=== PATIENT | female | born 1985 | race Caucasian/White ===

== ENCOUNTER 2021-07-04 08:33 | Outpatient (REF) | payer BC, SELFPAY ==
[2021-07-05 06:03] LABS: CT PCR NOT DETECTED (Not Detect.); NG PCR NOT DETECTED (Not Detect.)
[2021-07-05 08:58] LABS: BV Int Neg Control Negative (Negative); BV Int Pos Control Positive (Positive)
== END 2021-07-04 08:34 | disposition home or self-care (01) ==
LOC: HO.LAB 08:33
PROVIDERS: PCP Internal Medicine; Visit Provider Advanced Practice Midwife
DX: Z11.3 Encounter for screening for infections with a predominantly sexual mode of transmission (principal); N94.6 Dysmenorrhea, unspecified; N89.8 Other specified noninflammatory disorders of vagina; N92.4 Excessive bleeding in the premenopausal period
CPT/HCPCS: 87480; 87491; 87510; 87591; 87660

== ENCOUNTER 2021-10-08 18:46 | Emergency (ER) | payer BC, SELFPAY ==
[2021-10-08 19:44] VITALS: BP 120/70; PULSE 87; RESP 18; TEMP 36.8; O2SAT 97
--- NOTE | 2021-10-08 23:36 | ED_ITS ---
HPI - Back Pain/Injury General Chief Complaint: Back Pain/Injury Stated Complaint: Back pain Time Seen by Provider: 10/08/21 23:34 Source: patient Mode of arrival: ambulatory Limitations: no limitations History of Present Illness HPI Narrative: notes she feels due to the pain she has trouble walking and even cut her right heel at home MD elicited complaint: back pain and back injury Pertinent past history: other (sciatica with ) Onset (ago): day(s) (6) Timing: progressively worsening Severity: severe Similar Symptoms Previously: No Quality: sharp Location: lumbar spine Radiation: buttocks and left leg below the knee Exacerbating factors: movement and walking Relieving factors: none Context: unknown Associated symptoms: difficulty walking and urinary incontinence (reports sitting and feeling urine leak x 2 this week) Treatments prior to arrival: other (has tried NSAIDs last dose 6 hours ago no relief) Work related injury: No Related Data Home Medications Medication Instructions Recorded Confirmed clonazepam 1 mg tablet 1 mg PO BID PRN 07/04/21 07/04/21 escitalopram oxalate 20 mg tablet 20 mg PO DAILY 07/04/21 07/04/21 Previous Rx's Medication Instructions Recorded diazepam 5 mg tablet (Valium) 5 mg PO TID PRN #12 tab 10/09/21 ibuprofen 600 mg tablet 600 mg PO Q6H PRN #30 tab 10/09/21 lidocaine 4 % topical patch 1 patch TOPICAL DAILY PRN #10 ea 10/09/21 prednisone 20 mg tablet 40 mg PO DAILY 4 Days #8 tab 10/09/21 Allergies Allergy/AdvReac Type Severity Reaction Status Date / Time No Known Allergies Allergy Verified 10/08/21 19:44 [No Known Allergies*] Review of Systems Review of Systems: Constitutional : No Weight loss, No Fever, No Chills, ENT/Mouth : No Hearing loss, No Ear Pain, No Nasal Congestion, No Sinus Pain, No Hoarseness, No sore throat, No Rhinorrhea, No Swallowing Difficulty Cardiovascular : No Chest Pain, No SOB Respiratory : No Cough, No Dyspnea Gastrointestinal : No Nausea, No Vomiting, No Diarrhea, No abdominal Pain, No Hematochezia, No Melena Genitourinary : No Dysuria, No Urinary Frequency, No Hematuria, No Urinary Incontinence, Musculoskeletal : positive back pain Skin : No Skin Lesions, No rash Neuro : No Weakness, No Numbness, No Paresthesias, no loss of bowel function, pos mild bladder incontinence, no saddle anesthesia All other systems reviewed and are negative [facility] Past Medical History Attestation statement: The following information was validated with the patient. Medical History History of anxiety Surgical History Hx of section Social History Social History Alcohol intake: current Alcohol intake frequency: a few times a week Patient Tobacco Use Status: Former Tobacco user e-Cigarette/Vaping Use: Currently Using Advance Directives: No Advance Directives Information Provided: Yes Patient : No Sexual orientation: Straight/Heterosexual Gender identity: Female Physical Exam Vital Signs: Vital Signs: Last Vital Signs Temp 98.7 F 10/09/21 00:10 Pulse 67 10/09/21 00:10 Resp 12 10/09/21 00:10 BP 104/54 L 10/09/21 00:10 Pulse Ox 98 10/09/21 00:10 Body Mass Index 0.3 Appearance: Alert. Oriented X3. No acute distress. Eyes: Pupils equal, round and reactive to light. ENT: Pharynx normal. Neck: Normal inspection. Neck supple. CVS: Normal heart rate and rhythm. Pulses normal. Respiratory: No respiratory distress. Breath sounds normal. Abdomen: Soft and nontender. Rectal: normal tone Back: ttp along lumbar spine into L buttock reproduces pain Skin: Skin warm and dry. Normal skin color. Normal skin turgor. Extremities: No lower extremity edema. Neuro: Oriented X 3. No motor deficit. No sensory deficit. SILT inner thigh, L5 5/5 2+ DTR in patella and achilles Course Course Course Narrative: PVR 57mL not retaining urine feels much better stable for DC MDM - Back Pain/Injury MDM Narrative Medical decision making narrative: 36 yo female who has had sciatica in comes in with c/o low back pain radiating down left leg - SILT inner thigh, 2+ reflexes, L5 5/5 bilaterally, normal rectal tone, no AC therapy and no IVDA - will obtain PVR as well. At this time suspect sciatica will provide IV toradol/morphine and steroids for pain. No signs of CE at this time pending PVR Discharge Plan Discharge Clinical Impression: Sciatica Qualifiers: Laterality: left Qualified Code(s): M54.32 - Sciatica, left side Patient Disposition: Home, Self-Care Instructions: Sciatica (ED) Additional Instructions: return to ED for any worsening symptoms or concerns please see your primary care for possible MRI and physical therapy Prescriptions: New lidocaine 4 % adhesive patch,medicated 1 patch topical DAILY PRN (Reason: pain) Qty: 10 RF: 0 prednisone 20 mg tablet 40 mg PO DAILY 4 Days Qty: 8 RF: 0 ibuprofen 600 mg tablet 600 mg PO Q6H PRN (Reason: pain) Qty: 30 RF: 0 diazepam [Valium] 5 mg tablet 5 mg PO TID PRN (Reason: muscle spasm) Qty: 12 RF: 0 No Action escitalopram oxalate 20 mg tablet 20 mg PO DAILY RF: 0 clonazepam 1 mg tablet 1 mg PO BID PRNRF: 0 Stand Alone Forms: Work/School Release
[2021-10-09 00:10] VITALS: BP 104/54; PULSE 67; RESP 12; TEMP 37.1; O2SAT 98
[2021-10-09] MEDS: ondansetron HCL 4 MG/2 ML VIAL IVPUSH (01:02)
[2021-10-09] MEDS: Morphine Sulfate 4 MG/ML CARTRIDGE IVPUSH (01:02)
[2021-10-09] MEDS: Ketorolac Tromethamine 15 MG/ML VIAL 30 MG IVPUSH (01:02)
[2021-10-09] MEDS: methylPREDNISolone Sod Succ 125 MG/2 ML VIAL 60 MG IVPUSH (01:03)
[2021-10-09] MEDS: Famotidine/PF 20 MG/2 ML VIAL IVPUSH (01:06)
[2021-10-09 01:21] LABS: Appearance Urine CLEAR; Color Urine STRAW; Glucose Urine UA NEG (NEG); Leukocyte Esterase Urine NEG (NEG); Nitrite Urine NEG (NEG); Specific Gravity - Urine <= 1.005 (1.005-1.025); Urine Blood NEG (NEG); Urine Ketones NEG (NEG); Urine Protein NEG (NEG-TRACE)
[2021-10-09 01:24] LABS: UPreg QC Valid YES; Urine Pregnancy NEGATIVE (NEGATIVE)
[2021-10-09 01:25] LABS: UACC Culture Trigger NO
== END 2021-10-09 03:12 | disposition home or self-care (01) ==
PROVIDERS: Emergency Provider Emergency Medicine
DX: M54.32 Sciatica, left side (principal); R26.2 Difficulty in walking, not elsewhere classified; Z87.891 Personal history of nicotine dependence; Z79.899 Other long term (current) drug therapy
CPT/HCPCS: 51798; 81003; 81025; 96374; 96375; 99284; J1885; J2270; J2405; J2930

== ENCOUNTER 2023-02-18 09:29 | Outpatient (REF) | payer BC, SELFPAY ==
[2023-02-18 14:57] LABS: CT PCR NOT DETECTED (Not Detect.); NG PCR NOT DETECTED (Not Detect.)
[2023-02-19 13:00] LABS: BV Int Neg Control Negative (Negative); BV Int Pos Control Positive (Positive)
[2023-02-19 19:43] LABS: HPV mRNA E6/E7 rflx Not Detected (Not Detected)
== END 2023-02-18 09:30 | disposition home or self-care (01) ==
LOC: HO.LNP 09:29
PROVIDERS: Visit Provider Advanced Practice Midwife
DX: Z01.419 Encounter for gynecological examination (general) (routine) without abnormal findings (principal); Z11.51 Encounter for screening for human papillomavirus (HPV); Z20.2 Contact with and (suspected) exposure to infections with a predominantly sexual mode of transmission; N92.4 Excessive bleeding in the premenopausal period; Z87.42 Personal history of other diseases of the female genital tract; Z98.890 Other specified postprocedural states
CPT/HCPCS: 0353U; 87480; 87510; 87624; 87660; 88142

== ENCOUNTER 2023-02-27 12:48 | Outpatient (REF) | payer BC, SELFPAY ==
--- NOTE | ~2023-02-27 | US_ITS ---
EXAMINATION: US PELVIS CLINICAL INFORMATION: Excessive menstruation, LMP 01/27/2023. COMPARISON: None available. TECHNIQUE: Ultrasound of the pelvis is performed using both transabdominal and transvaginal transducers along with Doppler. Transvaginal imaging is performed due to inadequate visualization transabdominally. FINDINGS: The uterus is anteverted measuring 8.4 x 4.6 x 6 cm. No uterine lesion. The endometrium measures 1.6 cm in thickness without a discrete focal abnormality or associated vascularity. Nabothian cysts are noted in the cervix. The right ovary is slightly asymmetrically increased in size compared to the left but normal in morphology with preserved flow at the moment of this examination. The right ovary measures 3. 2 x 2 by 3 cm, 11 mL and the left ovary measures 2.9 x 1.7 x 2 cm, 5 mL. No free fluid. US/US pelvic and transvaginal IMPRESSION: 1. The endometrium is within the upper limits of normal for a premenopausal patient in the secretory phase of the menstrual cycle. Recommend correlation with certainty of the patient's menstrual history and a follow-up pelvic ultrasound in a few weeks to reassess. 2. The right ovary is asymmetrically enlarged when compared to the left, nonspecific. A discrete ovarian lesions or morphologic abnormality are not identified. This could be reassessed with the above recommended ultrasound as well.
== END 2023-02-27 12:49 | disposition home or self-care (01) ==
LOC: HO.HMGCX 12:48
PROVIDERS: PCP Internal Medicine; Visit Provider Advanced Practice Midwife
DX: N92.4 Excessive bleeding in the premenopausal period (principal); Z87.42 Personal history of other diseases of the female genital tract
CPT/HCPCS: 76830; 76856

== ENCOUNTER → 2023-03-06 09:42 | Outpatient (BNVA) | payer BC, SELFPAY | PROVIDERS: PCP Internal Medicine; Visit Provider Advanced Practice Midwife | DX: Z13.89 Encounter for screening for other disorder (principal) ==

== ENCOUNTER 2023-03-14 16:04 | Outpatient (REF) | payer BC, SELFPAY ==
[2023-03-14 16:28] LABS: Hematocrit 42.5 % (37.0-47.0); Hemoglobin 14.5 g/dl (12.0-16.0); Mean Corpuscular HGB Conc 34.1 g/dl (31.0-35.0); Mean Corpuscular Hemoglobin 30.5 pg (27.0-33.0); Mean Corpuscular Volume 89.5 fL (80.0-98.0); Mean Platelet Volume 10.3 fL (9.4-12.3); Platelet Count 252 X10*3/uL (160-400); Red Blood Count 4.75 X10*6/uL (4.20-5.50); Red Cell Distribution Width 12.3 % (11.0-16.0); White Blood Count 8.8 X10*3/uL (4.8-10.8)
[2023-03-14 17:17] LABS: Thyroid Stimulating Hormone 1.04 uIU/mL (0.32-4.0)
== END 2023-03-14 16:05 | disposition home or self-care (01) ==
LOC: HO.LAB 16:04
PROVIDERS: Visit Provider Advanced Practice Midwife
DX: N92.4 Excessive bleeding in the premenopausal period (principal); Z87.42 Personal history of other diseases of the female genital tract
CPT/HCPCS: 36415; 84443; 85027

== ENCOUNTER 2023-03-17 14:15 | Outpatient (REF) | payer BC, SELFPAY | END 2023-03-17 14:16 | disposition home or self-care (01) | LOC: HO.LNP 14:15 | PROVIDERS: PCP Internal Medicine; Visit Provider Obstetrics & Gynecology | DX: Z87.42 Personal history of other diseases of the female genital tract (principal) | CPT/HCPCS: 58100; 81025; 88305 ==

== ENCOUNTER 2023-03-19 12:38 | Outpatient (REF) | payer BC, SELFPAY ==
[2023-03-19 13:10] LABS: Hematocrit 39.9 % (37.0-47.0); Hemoglobin 13.5 g/dl (12.0-16.0); Mean Corpuscular HGB Conc 33.8 g/dl (31.0-35.0); Mean Corpuscular Hemoglobin 30.2 pg (27.0-33.0); Mean Corpuscular Volume 89.3 fL (80.0-98.0); Mean Platelet Volume 10.1 fL (9.4-12.3); Platelet Count 187 X10*3/uL (160-400); Red Blood Count 4.47 X10*6/uL (4.20-5.50); Red Cell Distribution Width 12.2 % (11.0-16.0); White Blood Count 12.1 X10*3/uL (4.8-10.8)
[2023-03-19 13:55] LABS: Influenza A PCR NEGATIVE (Negative); Influenza B PCR NEGATIVE (Negative); Resp Syncy Virus RNA Qual PCR NEGATIVE (Negative); SARS COV2 PCR INHOUSE NEGATIVE (Negative)
[2023-03-19 14:49] LABS: IDNOW Serial# 08D9AD1C; Strep A Nucleic Acid Positive (Negative)
[2023-03-19 18:05] LABS: CT PCR NOT DETECTED (Not Detect.); NG PCR NOT DETECTED (Not Detect.)
== END 2023-03-19 12:39 | disposition home or self-care (01) ==
LOC: HO.LAB 12:38
PROVIDERS: PCP Internal Medicine; Visit Provider Obstetrics & Gynecology
DX: R50.9 Fever, unspecified (principal); J06.9 Acute upper respiratory infection, unspecified; J02.9 Acute pharyngitis, unspecified; Z20.2 Contact with and (suspected) exposure to infections with a predominantly sexual mode of transmission; Z87.42 Personal history of other diseases of the female genital tract
CPT/HCPCS: 0241U; 0353U; 81003; 81025; 85027; 87070; 87086; 87147; 87651

== ENCOUNTER 2023-03-19 13:35 | Outpatient (REF) | payer BC, SELFPAY | END 2023-03-19 13:36 | disposition home or self-care (01) | LOC: HO.LNP 13:35 | PROVIDERS: Visit Provider Obstetrics & Gynecology | DX: Z13.89 Encounter for screening for other disorder (principal) ==

== ENCOUNTER → 2023-04-21 11:24 | Outpatient (BNVA) | payer BC, SELFPAY | PROVIDERS: PCP Internal Medicine; Visit Provider Obstetrics & Gynecology ==

== ENCOUNTER 2025-06-23 13:04 | Outpatient (REF) | payer BC, SELFPAY ==
[2025-06-23 14:47] LABS: Hematocrit 38.3 % (37.0-47.0); Hemoglobin 12.9 g/dl (12.0-16.0); Mean Corpuscular HGB Conc 33.7 g/dl (31.0-35.0); Mean Corpuscular Hemoglobin 30.9 pg (27.0-33.0); Mean Corpuscular Volume 91.8 fL (80.0-98.0); NRBC Abs Auto 0.000 X10*3/uL (0.0-0.012); NRBC Pct Auto 0.0 /100WBC (0.0-0.2); Platelet Count 290 X10*3/uL (160-400); Red Blood Count 4.17 X10*6/uL (4.20-5.50); White Blood Count 8.2 X10*3/uL (4.8-10.8)
[2025-06-23 18:40] LABS: CT PCR NOT DETECTED (Not Detect.); NG PCR NOT DETECTED (Not Detect.)
== END 2025-06-23 13:05 | disposition home or self-care (01) ==
LOC: HO.LAB 13:04
PROVIDERS: PCP Internal Medicine; Visit Provider Obstetrics & Gynecology
DX: N93.9 Abnormal uterine and vaginal bleeding, unspecified (principal); Z32.02 Encounter for pregnancy test, result negative
CPT/HCPCS: 36415; 81025; 84443; 84702; 85027; 87491; 87591

== ENCOUNTER 2025-06-23 13:04 | Outpatient (AMB) | payer BC, SELFPAY ==
--- NOTE | 2025-06-23 13:35 | MHC.OFFVIS ---
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: No Information Interpreted: non-clinical & clinical Maintenance Mechanic Technician: Maintenance Mechanic Technician Present (Francisca NICOLAS) Accompanied by: Self / Same As Patient Allergies No Known Allergies (No Known Allergies*) Allergy (Verified 06/23/25 13:39) HPI Comments Details: The patient is presenting c/o irregular bleeding associated with passage of blood clots and abdominal cramping for the last 2 years Last co testing in 03/02 was negative Last mammogram at [facility], was in October 03, according to patient was negative no records available [facility] Medical History History of anxiety Surgical History Hx of section Social History Alcohol intake: current Alcohol intake frequency: a few times a week Patient Tobacco Use Status: Former Tobacco user e-Cigarette/Vaping Use: Currently Using Sexual orientation: Straight/Heterosexual Gender identity: Female Review of Systems Const All systems reviewed & are unremarkable except as noted in HPI and below Card Reports as per HPI Resp Reports as per HPI GI Reports as per HPI and Reports no additional complaints Reports as per HPI Physical Exam Const General: cooperative, healthy appearing and comfortable Chest Chest palpation & inspection: normal inspection of the chest and normal palpation of entire chest wall Breast/axilla inspection: normal inspection of the breasts and normal inspection of the axillae Breast/axilla palpation: normal palpation of the breasts, normal palpation of the axillae and no axillary lymphadenopathy Resp Effort & Inspection: normal respiratory effort Auscultation: clear to auscultation bilaterally Percussion: percussion normal Cardio Palpation: normal PMI Rate: regular rate Rhythm: regular rhythm Heart sounds: no murmurs and no rubs Peripheral pulses: Peripheral pulses 2+ throughout GI Inspection: Yes normal to inspection Palpation (GI): Soft to palpation, nontender, no guarding, not rigid and No hepatosplenomegaly present Percussion: Yes normal to percussion Auscultation: normal bowel sounds Rectal Exam - Female: deferred General: Yes bladder normal to palpation External Female Exam: No lesion Speculum Exam - Vagina: normal appearance of the vagina, normal palpation, normal vaginal discharge and not erythematous Speculum Exam - Cervix: normal appearance of the cervix and normal palpation Bimanual exam- vagina & uterus: normal bimanual exam, normal palpation, uterine size normal, bladder normal to palpation, consistency normal and normal palpation Bimanual Exam- Adnexa, other: normal adnexae, no masses and no tenderness Results AMB Test Urine AMB Test Urine Negative Last Edit by Francisca Cantu CMA on 06/23/25 13:38 Results Reviewed Results Reviewed: Laboratory Last Values Tst Clinic Negative 06/23/25 13:37 Assessment & Plan Assessment & Plan (1) Abnormal uterine bleeding: Code(s): N93.9 - Abnormal uterine and vaginal bleeding, unspecified Category: Medical Plan: GC and chlamydia taken CBC, TSH, HCG, and pelvic ultrasound ordered. Discussed with the patient the different causes of abnormal bleeding including thyroid disorders, uterine and ovarian pathology, endometrial hyperplasia, carcinoma and other potential causes. Discussed with the patient the work up including CBC (to r/o anemia), TSH, pelvic Ultrasound, endometrial biopsy to r/o endometrial pathology. All questions answered and the patient verbalized understanding. Instructed the patient to schedule an appointment for an endometrial biopsy in 2 weeks. Orders: Orders TSH reflex Free T4 Today N93.9 - Abnormal uterine and vaginal bleeding, unspecified Complete Blood Count no Diff Today N93.9 - Abnormal uterine and vaginal bleeding, unspecified HCG Quantitative Today N93.9 - Abnormal uterine and vaginal bleeding, unspecified US pelvic and transvaginal Today N93.9 - Abnormal uterine and vaginal bleeding, unspecified AMB HCG Urine Test Today Z32.02 - Encounter for test, result negative Coding Level of Care Code Est Pt Level 3 (28767) Diagnoses Abnormal uterine bleeding N93.9
[2025-06-23 13:39] VITALS: BMI 31.2
--- OUTSIDE RECORDS SUMMARY | 2025-06-23 13:54 | XMS_ITS | Clinical Summary ---
Author Organization [facility] Address [address] [place] [address] Phone Care Team Providers Care Rn Labor And Delivery Name Role Phone Soniya Miranda MD Primary Care Provider [phone] Allergies No known active allergies Medications triamcinolone (KENALOG) 0.1 % cream Apply to affected areas twice daily x2 weeks.Then on and off as needed for flares. Active clonazePAM (KlonoPIN) 1 mg tablet Take 1 tablet by mouth 2 times daily. Active escitalopram (LEXAPRO) 20 mg tablet Take 20 mg by mouth daily. Active Active Problems Problem Noted Date Diagnosed Date Lumbar radiculopathy, right 07/12/2022 Overview (06/22/2025): COVID-19 11/01/2020 Depression with anxiety 01/30/2016 Immunizations Name Administration Dates Next Due Influenza trivalent, with pr eservative (Fluzone; Afluria) 6mo and older 08/26/2017,10/11/2016,07/26/2015 Tdap Tetanus diptheria acell ular pertussis (Boostrix; Adacel) 7yo and older 09/11/2017,03/24/2015 Surgical History Surgery Date Site/Laterality Comments SECTION OTHER SURGICAL HISTORY 06/21/2022 : Right L5-S1 decompression, Dr. Levine OTHER SURGICAL HISTORY 2002 [place] tooth extraction Medical History Medical History Date Comments Anxiety disorder Lumbar radiculopathy, right 07/12/2022 Last Assessment & Plan: Patient is 3 weeks s/p right L5-S1 discectomy, notes residual numbness in the right lateral leg and fourth and fifth digits. She states the severe burning nerve pain in the right leg is gone, she has muscle pain and aching in the right low back, buttock and proximal thigh. She rates her pain on average 4-7/10, states she would probably rate it 3-8/10. She tries to Family History Medical History Relation Name Comments Multiple sclerosis Aunt maternal, dementia also Hypertension Father Rheum arthritis Maternal Grandmother Other: anxiety Mother Diabetes Paternal Grandfather Coronary artery disease Paternal Grandmother Relation Name Status Comments Aunt Alive Father Maternal Grandmother Mother Paternal Grandfather Paternal Grandmother Social History Tobacco Use Types Packs/Day Years Used Date Smoking Tobacco: Former Smokeless Tobacco: Never Alcohol Use Standard Drinks/Week Comments Yes 0 (1 standard drink = 0.6 oz pur e alcohol) Comments No Sex and Gender Information Value Date Recorded Sex Assigned at Female 11/19/2024 4:23 PM EST Legal Sex Female 2:20 PM EST Gender Identity Female 11/19/2024 4:23 PM EST Sexual Orientation Straight 11/19/2024 4: 23 PM EST Obstetrics History Para Term AB IAB SAB Ectopic Multiple Livin g Live Births 3 Last Filed Vital Signs Vital Sign Reading Time Taken Comments Blood Pressure 100/60 12/03/2023 4:24 PM EST Pulse 73 12/03/2023 4:24 PM EST Temperature - - Respiratory Rate - - Oxygen Saturation - - Inhaled Oxygen Concentration - - Weight 79.4 kg (175 lb) 11/22/2024 9:12 AM EST Height 175.3 cm (5' 9 ) 11/22/2024 9:12 AM EST Body Mass Index 25.84 11/22/2024 9:12 AM EST Plan of Treatment Upcoming Encounters Date Type Department Care Team (Late st Contact Info) Description 07/04/2025 3:00 PM EDT Office Visit Adult Medicine [facility] [address], [place] [phone] Soniya Miranda MD [address], [place] Health Maintenance Due Date Last Done Comments Hepatitis B Vaccines ( - + 3-dose series) 2003 HIV Screening 10/09/2022 Hepatitis C Screening 10/09/2022 Social Influencers of Health Screening 10/09/2022 COVID-19 Vaccine (4 - 2023-2 5 season) 2024 11/08/2021, 03/27/2021, 03/01/2021 Depression Screening 11/10/2024 Influenza Vaccine (#1) 2025 7, 10/11/2016, 07/26/2015 Cervical Cancer Screening: P ap Smear 10/14/2025 10/14/2022 Cholesterol Screening (Lipid Panel) 08/21/2026 08/21/2021 Breast Cancer Screening 11/22/2026 11/22/2024 DTaP,Tdap,and Td Vaccines (3 - Td or Tdap) 09/11/2027 09/11/2017, 03/24/2015 HIB Vaccines Aged Out No longer eligi ble based on patient's age to complete this topic HPV Vaccines Aged Out No longer eligi ble based on patient's age to complete this topic Hepatitis A Vaccines Aged Out No long er eligible based on patient's age to complete this topic IPV Vaccines Aged Out No longer eligi ble based on patient's age to complete this topic MMR Vaccines Aged Out No longer eligi ble based on patient's age to complete this topic Meningococcal ACWY Vaccine Aged Out N o longer eligible based on patient's age to complete this topic Meningococcal B Vaccine Aged Out No l onger eligible based on patient's age to complete this topic Pneumococcal Vaccine: Pediatrics (0 to 5 Years) and At-Risk Patients (6 to 49 Years) Aged Out No longer eligible b ased on patient's age to complete this topic RSV Immunization Patients Under 20 months Aged Out No longer eligible b ased on patient's age to complete this topic Varicella Vaccines Aged Out No longer eligible based on patient's age to complete this topic Procedures Procedure Name Priority Date/Time Associated Diagnosis Comments MG MAMMO DIGITAL SCREENING W PHILIP BILAT Routine 11/22/2024 9:20 AM EST Encounter for screening mammogram for breast cancer HM PAP SMEAR Routine 10/14/2022 LIPID PANEL Routine 08/21/2021 from Last 3 Months or Most Recently Relevant to Health Maintenance Results * MG Mammo Digital Screening w Philip bilat (11/22/2024 9:20 AM EST) Anatomical Region Laterality Modality Breast Bilateral Mammography 11/22/2024 12:1 3 PM EST Impressions 11/22/2024 12:18 PM EST No mammographic evidence of malignancy. No suspicious interval change. A negative mammogram in the presence of a clinically suspicious palpable abnormality does not preclude the possibility of malignancy or alter the indications for biopsy. ASSESSMENT: BI-RADS 1: NEGATIVE RECOMMENDATION(S): 1: Routine screening mammogram BILATERAL in 1 year. -------- FINAL REPORT -------- Dictated By: Emre Hodge Dictated Date: 11/22/2024 12:13 ET Assigned Physician: Emre Hodge Reviewed and Electronically Signed By: Emre Hodge Signed Date: 11/22/2024 12:18 ET Workstation ID: [id number] Transcribed By: Self Edit Transcribed Date: 11/22/2024 12:13 ET Narrative 11/22/2024 12:18 PM EST EXAM: SCREENING MAMMOGRAPHY, BILATERAL HISTORY: SCREENING. No additional history. COMPARISON: Initial exam TECHNIQUE: Synthesized CC and MLO projections of each breast. Tomosynthesis of each breast in the CC and MLO projections. ADDITIONAL IMAGING: None Computer-aided detection was employed with the [employer] AI 3-D. TISSUE DENSITY: There are scattered areas of fibroglandular density. (BI-RADS category B) FINDINGS: RIGHT BREAST: No suspicious mass. No suspicious calcification. No distortion. No additional suspicious right breast findings LEFT BREAST: No suspicious mass. No suspicious calcification. No distortion. No additional suspicious left breast findings Procedure Note Emre Hodge MD - 11/22/2024 EXAM: SCREENING MAMMOGRAPHY, BILATERAL HISTORY: SCREENING. No additional history. COMPARISON: Initial exam TECHNIQUE: Synthesized CC and MLO projections of each breast.Tomosynthesis of each breast in the CC and MLO projections. ADDITIONAL IMAGING: None Computer-aided detection was employed with the [employer] profound AI 3-D. TISSUE DENSITY: There are scattered areas of fibroglandular density.(BI-RADS category B) FINDINGS: RIGHT BREAST: No suspicious mass. No suspicious calcification. No distortion. Noadditional suspicious right breast findings LEFT BREAST: No suspicious mass. No suspicious calcification. No distortion. Noadditional suspicious left breast findings IMPRESSION: No mammographic evidence of malignancy. No suspicious interval change. A negative mammogram in the presence of a clinically suspicious palpableabnormality does not preclude the possibility of malignancy or alter theindications for biopsy. ASSESSMENT: BI-RADS 1: NEGATIVE RECOMMENDATION(S): 1: Routine screening mammogram BILATERAL in 1 year. -------- FINAL REPORT -------- Dictated By: Emre Hodge Dictated Date: 11/22/2024 12:13 ET Assigned Physician: Emre Hodge Reviewed and Electronically Signed By: Emre Hodge Signed Date: 11/22/2024 12:18 ET Workstation ID: [id number] Transcribed By: Self Edit Transcribed Date: 11/22/2024 12:13 ET Self Referral Sppl IMG BI PROCEDURES Final Resul t * Hm Pap Smear (10/14/2022) Pap smear No Interpretation , Abstracted Historical Provider HEALTH MAINTENANCE Final Result * (ABNORMAL) Lipid panel (08/21/2021) LDL/HDL Ratio 5(A) 0 - 4 Triglycerides 246(A) 0 - 150 mg/dL Cholesterol 239(A) 0 - 200 mg/dL HDL 50 >=40 mg/dL LDL Cholesterol 140(A) 0 - 100 mg/dL Blood Venous blood specimen / Unknown Historical Provider LAB BLOOD ORDERABLES Marianela l Result from Last 3 Months or Most Recently Relevant to Health Maintenance Insurance [facility] Care Teams Rn Labor And Delivery Relationship Specialty Start Date End Date Soniya Miranda MD [address] [place] [address] PCP - General Internal Medicine 02/07/21
--- OUTSIDE RECORDS SUMMARY | 2025-06-23 13:54 | XMS_ITS ---
Author Name [place] Organization Unknown Care Team Organization Name Specialty Phone Email Start Date End Da te [facility] Soniya Miranda Primary Care 09/17/2022 4
== END 2025-06-23 13:52 | disposition home or self-care (01) ==
LOC: HO.HWS 13:04
PROVIDERS: PCP Internal Medicine; Visit Provider Obstetrics & Gynecology
DX: Z32.02 Encounter for pregnancy test, result negative (principal); N93.9 Abnormal uterine and vaginal bleeding, unspecified
CPT/HCPCS: 99213

== ENCOUNTER 2025-06-23 13:59 | Outpatient (REF) | payer BC, SELFPAY | END 2025-06-23 14:00 | disposition home or self-care (01) | LOC: HO.LNP 13:59 | PROVIDERS: Visit Provider Obstetrics & Gynecology | DX: Z13.89 Encounter for screening for other disorder (principal) ==

== ENCOUNTER 2025-07-27 13:58 | Outpatient (REF) | payer BC, SELFPAY ==
--- NOTE | ~2025-07-27 | US_ITS ---
EXAMINATION: US PELVIS LIMITED CLINICAL INFORMATION: Abnormal uterine bleeding COMPARISON: 03/09/2023 TECHNIQUE: Ultrasound of the pelvis is performed using transabdominal technique only. FINDINGS: Uterus: The uterus is anteverted and measures 11.0 x 3.7 x 5.9 cm. Normal-appearing cervix. The double wall endometrial thickness is 0.6 mm. The uterus is smooth in contour and has normal myometrial echogenicity. No visible fibroid. Adnexa: Both ovaries are visualized. There is normal color flow to the adnexa. There is no ovarian torsion. There is no pelvic ascites or fluid collection. There are no adnexal masses. Right ovary measures 3.8 x 0.8 x 1.8 cm. Volume = 2.6 mL. Normal sonographic appearance. Left ovary measures 2.4 x 1.1 x 1.6 cm. Volume = 2.2 mL. Normal sonographic appearance. US/US pelvic limited IMPRESSION: Normal transabdominal pelvic ultrasound. Electronically signed by: Janak Licea MD 07/27/2025 02:16 PM EDT
== END 2025-07-27 13:59 | disposition home or self-care (01) ==
LOC: HO.HMGCX 13:58
PROVIDERS: PCP Internal Medicine; Visit Provider Obstetrics & Gynecology
DX: N93.9 Abnormal uterine and vaginal bleeding, unspecified (principal)
CPT/HCPCS: 76857

== ENCOUNTER → 2025-07-27 14:00 | Outpatient (BNV) | payer BC, SELFPAY | PROVIDERS: PCP Internal Medicine; Visit Provider Radiology Diagnostic Radiology | DX: N93.9 Abnormal uterine and vaginal bleeding, unspecified (principal) | CPT/HCPCS: 76857 ==

== ENCOUNTER 2025-09-12 14:04 | Outpatient (AMB) | payer BC, SELFPAY ==
--- NOTE | 2025-09-12 14:07 | MHC.OFFVIS ---
Vital Signs 09/12/25 14:08 Height 5 ft 9 in Weight 211 lb BMI 31.2 Intake Visit Reasons: us results/? EMB/ ok'd by [employer] Non Profit Financial Controller Required: No Information Interpreted: non-clinical & clinical Filling Operator: Filling Operator Present (Francisca NICOLAS) Accompanied by: Self / Same As Patient Allergies No Known Allergies (No Known Allergies*) Allergy (Verified 09/12/25 14:20) Is last menstrual period known: Yes Last menstrual period: 08/21/25 HPI Comments Details: Presenting for [facility] Medical History History of anxiety Surgical History Hx of section Social History Alcohol intake: current Alcohol intake frequency: a few times a week Patient Tobacco Use Status: Former Tobacco user e-Cigarette/Vaping Use: Currently Using Sexual orientation: Straight/Heterosexual Gender identity: Female Female Reproductive History Menstrual Date of last menstrual period: 08/21/25 Physical Exam Vital Signs: BMI result Body Mass Index 31.2 Office Procedures Endometrial Biopsy Details: The patient was counseled regarding the indication and benefits of endometrial sampling to rule out endometrial pathology including not limited to endometrial hyperplasia or endometrial cancer and others; The alternatives (Either do nothing vs. hysteroscopy D&C) & the risks were discussed with the patient including but not limited: pain, uterine perforation, bleeding, infection, possible injury to bladder, bowel, ureter, possible need for blood transfusion with all its possible risks. The patient verbalized understanding all questions answered and signed consent. Urine test done in the office was negative The patient was placed into the dorsal lithotomy position; a speculum was inserted in the vagina. Using aseptic technique for the procedure, the cervix was cleansed with Betadine. The anterior lip of the cervix was grasped with a single tooth tenaculum. The uterus was sounded to 7 cm with a 4 mm Pipelle was used. Tissues samples were obtained and placed in formalin, in a patient labeled container and sent to the pathology department. At the end of the procedure, there was minimal bleeding noted The patient tolerated the procedure well and was discharged in good condition with the following instructions: Nothing in the vagina until the bleeding stops. No sex until the bleeding stops, to call if any of the following occurs: fever (>100.4), flu-like symptoms, abdominal pain, heavy bleeding, four smelling vaginal discharge. The patient was instructed to schedule a Follow up appointment in 2 weeks to discuss pathology results of the biopsy and treatment options. This note was generated with a voice recognition program. Some errors may have been overlooked during the review of this note. Sometimes these errors may affect the content or meaning of a given sentence. 84955-[id number] Biopsy Results AMB Test Urine AMB Test Urine Negative Last Edit by Francisca Cantu CMA on 09/12/25 14:27 Assessment & Plan Assessment & Plan (1) Abnormal uterine bleeding: Code(s): N93.9 - Abnormal uterine and vaginal bleeding, unspecified Category: Medical Plan: EMB done, see procedure Orders: Orders AMB HCG Urine Test Today Z32.02 - Encounter for test, result negative AMB Endometrial Biopsy Today N93.9 - Abnormal uterine and vaginal bleeding, unspecified Coding Level of Care Code Procedure Only Diagnoses Abnormal uterine bleeding N93.9 CPT Codes Endometrial Biopsy - CPT: 54096-Tnlujawaqlw Biopsy ([id number])
[2025-09-12 14:08] VITALS: BMI 31.2
== END 2025-09-12 15:29 | disposition home or self-care (01) ==
LOC: HO.HWS 14:04
PROVIDERS: PCP Internal Medicine; Visit Provider Obstetrics & Gynecology
DX: N93.9 Abnormal uterine and vaginal bleeding, unspecified (principal); Z32.02 Encounter for pregnancy test, result negative
CPT/HCPCS: 58100

== ENCOUNTER 2025-09-12 14:04 | Outpatient (REF) | payer BC, SELFPAY | END 2025-09-12 14:05 | disposition home or self-care (01) | LOC: HO.LNP 14:04 | PROVIDERS: PCP Internal Medicine; Visit Provider Obstetrics & Gynecology | DX: N93.9 Abnormal uterine and vaginal bleeding, unspecified (principal); Z32.02 Encounter for pregnancy test, result negative | CPT/HCPCS: 58100; 81025; 88305 ==

== ENCOUNTER 2025-10-03 08:53 | Outpatient (AMB) | payer BC, SELFPAY ==
--- NOTE | 2025-10-03 08:54 | A.OFFVIS_ITS ---
Intake Visit Reasons: EMB results Daytime Babysitter Required: No Information Interpreted: non-clinical & clinical Allergies No Known Allergies (No Known Allergies*) Allergy (Verified 10/03/25 08:56) HPI Comments Details: The patient is presenting for follow-up to discuss the results of her abnormal uterine bleeding workup and options of treatment. The following workup was done.: H&H=12.9/38.3 TSH, hCG, GC and chlamydia were negative. Endometrial biopsy pathology showed the following: Benign early secretory endometrium; no atypia or carcinoma. Co testing was done in 03/02 was negative. Last mammogram was done at [facility] in 10/03 and according to the patient the results were negative Pelvic ultrasound showed the following: IMPRESSION: Normal transabdominal pelvic ultrasound. [facility] Medical History History of anxiety Surgical History Hx of section Social History Alcohol intake: current Alcohol intake frequency: a few times a week Patient Tobacco Use Status: Former Tobacco user e-Cigarette/Vaping Use: Currently Using Sexual orientation: Straight/Heterosexual Gender identity: Female Review of Systems Const All systems reviewed & are unremarkable except as noted in HPI and below Reports as per HPI and Reports no additional complaints GI Reports no additional complaints Reports no additional complaints Telehealth Telehealth Telehealth Platform: [facility] Location of provider rendering services: practice address Location of patient: address on file Patient Identification confirmed using: Name, : Yes Telehealth method: video Patient verbally consented to treatment: Yes Patient verbally consented to billing insurance company: Yes Patient informed of any privacy concerns related to visit: Yes Minutes spent on Phone/Video with Pt.: 7 Assessment & Plan Assessment & Plan (1) Abnormal uterine bleeding: Code(s): N93.9 - Abnormal uterine and vaginal bleeding, unspecified Category: Medical Plan: Discussed with the patient the results of the work up done and options of treatment including but not limited to BCP's, cyclic Progesterone, Mirena IUD, endometrial ablation and hysterectomy. All pros, cons, risks and benefits of each option were discussed with the patient and the patient decided to go ahead with cyclic Provera, so a more detailed discussion re: Progesterone treatment including mechanism of action, benefits (regular menses, endometrial protection form unopposed estrogen and reduction in the risk of endometrial hyperplasia and/or cancer ...), risks (Thrombosis, mood changes, weight gain, breast soreness, ? increased breast ca, others). Instructions were given to use a back- up method for contraception since this is not a method control, take the medication 1 tablet daily starting day 15-24 and to schedule a 3 months follow- up appointment; patient verbalized understanding and agreed with the plan. I spent a total of 20 minutes reviewing the chart, talking to the patient via video and documenting in the medical record. Orders: Orders MM tomosynthesis screening BI Today Z12.31 - Encounter for screening mammogram for malignant neoplasm of breast Medications: New medroxyprogesterone (Provera) start Provera 1 tablet daily from day 15-24 cyclically every months, day 1 being 1st day of menses 10 mg PO DAILY 30 tabs 0RF 10 days Coding Level of Care Code Tele Est Pt Level 3 (67116) Diagnoses Abnormal uterine bleeding N93.9
--- OUTSIDE RECORDS SUMMARY | 2025-10-03 09:28 | XMS_ITS | Encounter Summary ---
Author Organization [facility] [place] [address] Care Team Providers Care Analytical Chemist Name Role Phone Soniya Miranda MD Primary Care Provider [phone] Reason for Visit * Reason Onset Date Comments Results 09/01/2025 Encounter Details Date Type Department Care Team (Late st Contact Info) Description 09/01/2025 Results Follow-Up Adult Medicine [facility] [address], [place] [phone] Suzy Murphy PA [address], [place] Social History Tobacco Use Types Packs/Day Years Used Date Smoking Tobacco: Former Smokeless Tobacco: Never Comments:10 years 1/2 ppd th en vape x 5 years Alcohol Use Standard Drinks/Week Comments Yes 0 (1 standard drink = 0.6 oz pur e alcohol) weekends 3 drinks Housing Instability Answer Date Recorde d Are you worried that in the next 2 months you may not have stable housing? No 07/18/2025 Food Access & Nutrition Answer Date Rec orded Do you have access to a vari ety of food including fruits and vegetables? Yes 07/18/2025 Access to Healthcare Answer Date Record ed Within the last 3 months, ho w many times did you visit the emergency department for your medical care? 0 07/17/2025 Health Literacy Answer Date Recorded How often do you need to hav e someone help you when you read instructions, pamphlets, or other written material from your doctor or pharmacy? Never 07/17/2025 Caregiver: How often do you need to have someone help you when you read instructions, pamphlets, or other written material from your doctor or pharmacy? Not on file 07/17/2025 Financial Risk Answer Date Recorded How hard is it for you to pa y for the very basics like food, housing, medical care, and air conditioning / heating? Not very hard 07/18/2025 Transportation Answer Date Recorded Has the lack of transportati on kept you from meetings, work, or from getting things needed for daily living? No Has the lack of transportati on kept you from medical appointments or from getting medications? No 07/18/2025 Social Isolation Answer Date Recorded How often do you feel lonely or isolated from th ose around you? Never 07/17/2025 Food Risk Answer Date Recorded Within the past 12 months we worried whether our food would run out before we got money to buy more. Never true 07/18/2025 Within the past 12 months th e food we bought just didn't last and we didn't have money to get more. Never true 07/18/2025 Dependent Care Answer Date Recorded Do you need help finding or paying for care for your loved ones. For example, childcare director or elderly care for an older adult? No 07/17/2025 Education Answer Date Recorded Do you think completing more education or training, like finishing a GED, going to college, or learning a trade, would be helpful for you? No 07/17/2025 Employment and Income Answer Date Recor ded During the last four weeks, have you been actively looking for work? No 07/17/2025 Living Situation Answer Date Recorded What is your living situation? Unrecognized valu e 07/18/2025 Comments No Sex and Gender Information Value Date Recorded Sex Assigned at Female 11/19/2024 4:23 PM EST Legal Sex Female 2:20 PM EST Gender Identity Female 11/19/2024 4:23 PM EST Sexual Orientation Straight 11/19/2024 4: 23 PM EST documented as of this encounter Progress Notes * Mila Torres - 09/02/2025 10:50 AM EDT The patient is calling back for Suzy. documented in this encounter Plan of Treatment Upcoming Encounters Date Type Department Care Team (Late st Contact Info) Description 07/21/2026 8:00 AM EDT Office Visit Adult Medicine [facility] [address] [place] [address] Suzy Murphy PA [address], [place] documented as of this encounter Visit Diagnoses Not on filedocumented in this encounter Additional Health Concerns Assessment Noted Time PHQ-9 Depression Total Score: 0 07/17/20 25 1:34 PM EDT documented as of this encounter Care Teams Analytical Chemist Relationship Specialty Start Date End Date Soniya Miranda MD [address] [place] [address] PCP - General Internal Medicine 02/07/21 documented as of this encounter
--- OUTSIDE RECORDS SUMMARY | 2025-10-03 09:28 | XMS_ITS | Clinical Summary ---
Author Organization [facility] Address [address] [place] [address] Phone Care Team Providers Care Director Of Math Name Role Phone Soniya Miranda MD Primary Care Provider [phone] Allergies No known active allergies Medications clonazePAM (KlonoPIN) 1 mg tablet Take 1 tablet by mouth 2 times daily. Active escitalopram (LEXAPRO) 20 mg tablet Take 20 mg by mouth daily. Active buPROPion SR (WELLBUTRIN SR) 150 mg 12 hr tablet Take 1 tablet (150 mg total) by mouth 1 (one) time each day. 07/12/2025 Active propranoloL (INDERAL) 10 mg tablet Take 1 tablet (10 mg total) by mouth 2 (two) times a day if needed. for anxiety 04/05/2025 Active Active Problems Problem Noted Date Diagnosed Date Abnormal brain MRI 09/05/2025 Assessment & Plan (09/23/2025 4:46 PM EST): I reviewed the imaging findings in detail with Ms. Aleman noting the irregularity in the left frontal area. I believe this was an incidental finding. There are no aggressive features, it does not enhance and she is asymptomatic. This is a quiescent portion of the brain and would not cause her anisocoria. Is also unlikely to cause her chronic headaches or fatigue. At this point, I believe it is reasonable to follow this with a repeat MRI of the brain with and without gadolinium in 6 months and she is agreeable with that plan. She contact us if anything changes in the interim. Menorrhagia with irregular cycle 07/18/2025 Metrorrhagia 07/18/2025 Pupil asymmetry 07/18/2025 Chronic nonintractable headache 07/18/2025 Lumbar radiculopathy, right 07/12/2022 Overview (06/22/2025): COVID-19 11/01/2020 Depression with anxiety 01/30/2016 Encounters Date Type Department Care Team Description 09/23/2025 3:30 PM EST Consult Neurosurgery [place] [address] [place] [address] Mamie Barrios MD Abnormal brain MRI (Primary Dx) 09/01/2025 Results Follow-Up Adult Medicine [address] [phone] Suzy Murphy PA 08/31/2025 9:03 AM EDT - 08/31/2025 11:59 PM EDT Hospital Encounter Radiology Department - [address] [phone] Pupil asymmetry; Chronic nonintractable headache, unspecified headache type Discharge Disposition: Home or Self Care 07/18/2025 8:00 AM EDT Office Visit [address] [phone] Suzy Murphy PA Adult general medical examination (Primary Dx); Encounter for screening involving social determinants of health (SDoH); Screening for cholesterol level; Depression with anxiety; Menorrhagia with irregular cycle; Metrorrhagia; Pupil asymmetry; Chronic nonintractable headache, unspecified headache type; Rash from Last 3 Months Immunizations Immunization Administration Dates Next Due Influenza trivalent, with pr eservative (Fluzone; Afluria) 6mo and older 08/26/2017,10/11/2016,07/26/2015 Tdap Tetanus diptheria acell ular pertussis (Boostrix; Adacel) 7yo and older 09/11/2017,03/24/2015 Surgical History Surgery Date Site/Laterality Comments SECTION OTHER SURGICAL HISTORY 06/21/2022 : Right L5-S1 decompression, Dr. Levine OTHER SURGICAL HISTORY 2002 [place] tooth extraction Medical History Medical History Date [...] Date Smoking Tobacco: Former Smokeless Tobacco: Never Tobacco Cessation:Counseling Given: Not Answered Comments:10 years 1/2 ppd then vape x 5 years Alcohol Use Standard [...] Record ed Within the last 3 months, martir stapleton many times did you visit the emergency [...] care for your loved ones. For example, early childhood associate teacher or elderly care for an older adult? [...] Sign Reading Time Taken Comments Blood Pressure 103/69 07/18/2025 8:04 AM EDT Pulse 86 07/18/2025 8:04 AM EDT Temperature 36.1 C (96.9 F) 07/18/2025 8:04 AM EDT Respiratory Rate 16 07/18/2025 8:04 AM EDT Oxygen Saturation 99% 07/18/2025 8:04 AM EDT Inhaled Oxygen Concentration - - Weight 81.6 kg (180 lb) 09/23/2025 3:38 PM EST Height 175.3 cm (5' 9 ) 09/23/2025 3:38 PM EST Body Mass Index 26.58 09/23/2025 3:38 PM EST Plan of Treatment Upcoming Encounters Date Type Department Care Team (Late st Contact Info) Description 07/21/2026 8:00 AM EDT Office Visit Adult Medicine [facility] [address] [place] [address] Suzy Murphy PA [address] [place], [place] Health Maintenance Due Date Last Done Comments Hepatitis B Vaccines (1 of 3 - 19+ 3-dose series) 2003 HPV Vaccines (1 - 3-dose SCD M series) 2011 Cervical Cancer Screening: Pap Smear 10/14/2025 10/14/2022 Social Influencers of Health Screening 07/18/2026 07/18/2025 Breast Cancer Screening 11/22/2026 11/22/2024 DTaP,Tdap,and Td Vaccines (3 - Td or Tdap) 09/11/2027 09/11/2017, 03/24/2015 Cholesterol Screening (Lipid Panel) 07/18/2030 07/18/2025, 08/21/2021 RSV Immunization Adult Patients (1 - 1-dose 75+ series) 2059 Influenza Vaccine Discontinued 08/26/2017, 10/11/2016, 07/26/2015 COVID-19 Vaccine Discontinued 11/08/2021, 03/27/2021, 03/01/2021 Depression Screening Completed 07/17/2025 HIB Vaccines Aged Out No longer eligi ble based on patient's age to complete this topic HIV Screening Discontinued Hepatitis A Vaccines Aged Out No long er eligible based on patient's age to complete this topic Hepatitis C Screening Discontinued IPV Vaccines Aged Out No longer eligi [...] 49 Years) Aged Out No longer eligible based on patient's age to complete this topic RSV Immunization Patients Under 20 months Aged Out No longer eligible based on patient's age to complete this topic Varicella Vaccines Aged Out No longer eligible based on patient's age to complete this topic Procedures Procedure Name Priority Date/Time Associated Diagnosis Comments MR BRAIN WO AND W CONTRAST Routine 08/31/2025 10:27 AM EDT Pupil asymmetry Chronic nonintractable headache, unspecified headache type CBC WITH AUTO DIFFERENTIAL Routine 07/18/2025 8:50 AM EDT Adult general medical examination CBC AND DIFFERENTIAL Routine 07/18/2025 8:50 AM EDT Adult general medical examination COMPREHENSIVE METABOLIC PANEL Routine 07/18/2025 8:50 AM EDT Adult general medical examination LIPID PANEL WITH REFLEX TO DIRECT LDL Routine 07/18/2025 8:50 AM EDT Adult general medical examination THYROID STIMULATING HORMONE WITH REFLEX TO FREE T4 AND FREE T3 Routine 07/18/2025 8:50 AM EDT Adult general medical examination MG MAMMO DIGITAL SCREENING W PHILIP BILAT Routine 11/22/2024 9:20 AM EST Encounter for screening mammogram for breast cancer HM PAP SMEAR Routine 10/14/2022 from Last 3 Months or Most Recently Relevant to Health Maintenance Results * MR Brain wo and w Contrast (08/31/2025 10:27 AM EDT) Anatomical Region Laterality Modality Head and Neck Magnetic Resonan ce 08/31/2025 5:38 PM EDT Impressions 09/01/2025 2:17 PM EDT Abnormality in the paramedian left frontal lobe as described. 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 Neuroepithelial tumor (DNET) and potentially focal cortical dysplasia included in the differential. Recommend follow-up MRI in 3-6 months. -------- FINAL REPORT -------- Dictated By: Negar Obrien Dictated Date: 08/31/2025 17:38 ET Assigned Physician: Negar Obrien Reviewed and Electronically Signed By: Negar Obrien Signed Date: 09/01/2025 14:17 ET Workstation ID: [id number] Transcribed By: Self Edit Transcribed Date: 08/31/2025 18:42 ET Narrative 09/01/2025 2:17 PM EDT EXAM: BRAIN MRI HISTORY: Pupil asymmetry. Chronic episodic headaches. COMPARISON: None CORRELATION: None TECHNIQUE: Exam performed on a 1.5 Aida high-field MRI scanner. Multiplanar imaging performed without and with contrast. 15 cc of Dotarem administered intravenously. FINDINGS: Cluster of rounded T2/FLAIR hyperintense areas with somewhat bubbly appearance in the subcortical region of the paramedian left frontal lobe which span approximately 3 cm. Abnormality is difficult to discern on T1 and in some areas appears isointense with cortex. No associated enhancement. No surrounding edema or mass effect. Some areas show bright signal on diffusion imaging without hypointense signal on the ADC map. No restricted diffusion to indicate a recent infarct. No evidence of intracranial hemorrhage. No hydrocephalus. Basal cisterns are patent. No cerebellar ectopia. Pituitary gland is not enlarged. Distal left vertebral artery appears to terminate in the PICA which is a normal variant. Otherwise, normal vascular flow-voids appear present in the major intracranial arteries at the skull base. Minimal mucosal thickening in the ethmoid sinuses. 1 cm round lesion in the posterior nasopharyngeal tissues has T1/T2 hyperintense signal and likely represents a retention cyst. No significant fluid signal within mastoid air cells. Procedure Note Negar Obrien MD - 09/01/2025 EXAM: BRAIN MRI HISTORY: Pupil asymmetry. Chronic episodic headaches. COMPARISON: None CORRELATION: None TECHNIQUE: Exam performed on a 1.5 Aida high-field MRI scanner.Multiplanar imaging performed without and with contrast. 15 cc of Dotaremadministered intravenously. FINDINGS: Cluster of rounded T2/FLAIR hyperintense areas with somewhat bubblyappearance in the subcortical region of the paramedian left frontal lobewhich span approximately 3 cm. Abnormality is difficult to discern on T1and in some areas appears isointense with cortex. No associatedenhancement. No surrounding edema or mass effect. Some areas show brightsignal on diffusion imaging without hypointense signal on the ADC map. No restricted diffusion to indicate a recent infarct. No evidence ofintracranial hemorrhage. No hydrocephalus. Basal cisterns are patent. No cerebellar ectopia.Pituitary gland is not enlarged. Distal left vertebral artery appears toterminate in the PICA which is a normal variant. Otherwise, normalvascular flow-voids appear present in the major intracranial arteries atthe skull base. Minimal mucosal thickening in the ethmoid sinuses. 1 cm round lesion inthe posterior nasopharyngeal tissues has T1/T2 hyperintense signal andlikely represents a retention cyst. No significant fluid signal withinmastoid air cells. IMPRESSION: Abnormality in the paramedian left frontal lobe as described. This couldrepresent a multinodular and vacuolating neuronal tumor (MVNT).Neuroepithelial tumor (DNET) and potentially focal cortical dysplasiaincluded in the differential. Recommend follow-up MRI in 3-6 months. -------- FINAL REPORT -------- Dictated By: Negar Obrien Dictated Date: 08/31/2025 17:38 ET Assigned Physician: Negar Obrien Reviewed and Electronically Signed By: Negar Obrien Signed Date: 09/01/2025 14:17 ET Workstation ID: [id number] Transcribed By: Self Edit Transcribed Date: 08/31/2025 18:42 ET Suzy MARIA IM MRI PROCEDURES Final Result * Thyroid stimulating hormone with reflex to free t4 and free t3 (07/18/2025 8:50 AM EDT) TSH 2.23 0.40 - 4.00 mcIU/mL LAB CHEMISTRY METHOD 07/18/2025 11:15 AM EDT [facility] Blood Venous blood specimen / Unknown Venipuncture / Unknown 07/18/2025 8:50 AM EDT 07/18/2025 8:50 AM EDT us Suzy MARIA LAB BLOOD ORDERABLES Final Resul t Performing Organization Address City/[facility]/ZIP Co de Phone Number [facility] [address] [place] [address], [place] [phone] * (ABNORMAL) Lipid panel with reflex to direct LDL (07/18/2025 8:50 AM EDT) Cholesterol 211(H) 0 - 200 mg/dL LAB CHEMISTRY METHOD 07/18/2025 10:42 AM EDT [facility] Triglycerides 274(H) 0 - 150 mg/dL LAB CHEMISTRY METHOD 07/18/2025 10:42 AM EDT [facility] HDL 74 >=40 mg/dL LAB CHEMISTRY METHOD 07/18/2025 10:42 AM EDT [facility] LDL Calculated 82 0 - 100 mg/dL LAB CHEMISTRY METHOD 07/18/2025 10:42 AM EDT [facility] Comment:Estimated LDL Calcul ated using equation: Total cholesterol - HDL cholesterol - (Triglycerides/5) VLDL Cholesterol Royce 54.8 mg/dL LAB CHEMISTRY METHOD 07/18/2025 10:42 AM EDT [facility] Non HDL Chol. (LDL+VLDL) 137 <145 mg/dL LAB CHEMISTRY METHOD 07/18/2025 10:42 AM EDT [facility] Chol/HDL Ratio 2.9 0.0 - 4.4 LAB CHEMISTRY METHOD 07/18/2025 10:42 AM EDT [facility] Blood Venous blood specimen / Unknown Venipuncture / Unknown 07/18/2025 8:50 AM EDT 07/18/2025 8:50 AM EDT Suzy MARIA LAB BLOOD ORDERABLES Final Resul t Performing Organization Address City/[facility]/ZIP Co de Phone Number [facility] [address] [place] [address], [place] [phone] * CBC auto differential (07/18/2025 8:50 AM EDT) [facility] WBC 8.4 4.8 - 10.8 K/mcL LAB HEMETOLOGY METHOD 07/18/2025 10:22 AM [facility] RBC 4.50 3.80 - 4.80 M/mcL LAB HEMETOLOGY METHOD 07/18/2025 10:22 AM [facility] Hemoglobin 13.8 11.5 - 16.0 g/dL LAB HEMETOLOGY METHOD 07/18/2025 10:22 AM [facility] Hematocrit 40.9 35.0 - 47.0 % LAB HEMETOLOGY METHOD 07/18/2025 10:22 AM [facility] MCV 90.9 79.0 - 98.0 FL LAB HEMETOLOGY METHOD 07/18/2025 10:22 AM [facility] MCH 30.7 27.0 - 32.0 pcg LAB HEMETOLOGY METHOD 07/18/2025 10:22 AM [facility] MCHC 33.7 32.0 - 37.0 g/dL LAB HEMETOLOGY METHOD 07/18/2025 10:22 AM [facility] RDW 11.9 11.0 - 15.0 % LAB HEMETOLOGY METHOD 07/18/2025 10:22 AM [facility] Platelets 274 130 - 400 K/mcL LAB HEMETOLOGY METHOD 07/18/2025 10:22 AM [facility] MPV 9.9 7.0 - 11.0 FL LAB HEMETOLOGY METHOD 07/18/2025 10:22 AM [facility] NRBC 0.0 <1.0 % LAB HEMETOLOGY METHOD 07/18/2025 10:22 AM [facility] NRBC Absolute 0.00 <0.10 K/mcL LAB HEMETOLOGY METHOD 07/18/2025 10:[facility] Neutrophils Relative 59.6 % LAB HEMETOLOGY METHOD 07/18/2025 10:22 AM [facility] Lymphocytes Relative 33.1 % LAB HEMETOLOGY METHOD 07/18/2025 10:22 AM [facility] Monocytes Relative 5.3 % LAB HEMETOLOGY METHOD 07/18/2025 10:22 AM [facility] Eosinophils Relative 1.0 % LAB HEMETOLOGY METHOD 07/18/2025 10:22 AM [facility] Basophils Relative 0.6 % LAB HEMETOLOGY METHOD 07/18/2025 10:22 AM [facility] Immature Granulocytes Relative 0.4 % LAB HEMETOLOGY METHOD 07/18/2025 10:22 AM [facility] Neutrophils Absolute 4.99 1.50 - 7.00 K/mcL LAB HEMETOLOGY METHOD 07/18/2025 10:22 AM [facility] Lymphocytes Absolute 2.77 1.00 - 5.00 K/mcL LAB HEMETOLOGY METHOD 07/18/2025 10:22 AM [facility] Monocytes Absolute 0.44 0.20 - 1.00 K/mcL LAB HEMETOLOGY METHOD 07/18/2025 10:22 AM [facility] Eosinophils Absolute 0.08 0.00 - 0.50 K/mcL LAB HEMETOLOGY METHOD 07/18/2025 10:22 AM [facility] Basophils Absolute 0.05 0.00 - 0.20 K/mcL LAB HEMETOLOGY METHOD 07/18/2025 10:22 AM [facility] Immature Granulocytes Absolute 0.03 0.00 - 0.03 K/mcL LAB HEMETOLOGY METHOD 07/18/2025 10:22 AM [facility] Blood Venous blood specimen / Unknown Venipuncture / Unknown 07/18/2025 8:50 AM EDT 07/18/2025 8:50 AM EDT Suzy MARIA LAB BLOOD ORDERABLES Final Resul t [facility] [address] [place] [address], [place] [phone] * Comprehensive metabolic panel (07/18/2025 8:50 AM EDT) Pathologist [facility] Sodium 135 133 - 145 mmol/L LAB CHEMISTRY METHOD 07/18/2025 10:42 AM [facility] Potassium 4.3 3.5 - 5.5 mmol/L LAB CHEMISTRY METHOD 07/18/2025 10:42 AM [facility] Chloride 103 96 - 110 mmol/L LAB CHEMISTRY METHOD 07/18/2025 10:42 AM [facility] CO2 29 21 - 32 mmol/L LAB CHEMISTRY METHOD 07/18/2025 10:42 AM [facility] Anion Gap 3 3 - 11 LAB CHEMISTRY METHOD 07/18/2025 10:42 AM [facility] Glucose 90 70 - 100 mg/dL LAB CHEMISTRY METHOD 07/18/2025 10:42 AM [facility] BUN 10 5 - 25 mg/dL LAB CHEMISTRY METHOD 07/18/2025 10:42 AM [facility] Creatinine 0.92 0.50 - 1.10 mg/dL LAB CHEMISTRY METHOD 07/18/2025 10:42 AM [facility] eGFR 80 >=60 mL/min/1. 73m2 LAB CHEMISTRY METHOD 07/18/2025 10:42 AM [facility] Comment:Calculation based on the Chronic Kidney Disease Epidemiology Collaboration (CKD-EPI) equation refit without adjustment for race. BUN/Creatinine Ratio 10.9 LAB CHEMISTRY METHOD 07/18/2025 10:42 [facility] Calcium 9.2 8.5 - 10.5 mg/dL LAB CHEMISTRY METHOD 07/18/2025 10:42 AM [facility] AST (SGOT) 19 10 - 42 unit/L LAB CHEMISTRY METHOD 07/18/2025 10:42 AM [facility] ALT (SGPT) 26 10 - 60 unit/L LAB CHEMISTRY METHOD 07/18/2025 10:42 AM [facility] Alkaline Phosphatase 61 42 - 121 unit/L LAB CHEMISTRY METHOD 07/18/2025 10:42 AM [facility] Total Protein 7.4 6.0 - 8.0 g/dL LAB CHEMISTRY METHOD 07/18/2025 10:42 AM [facility] Albumin 4.2 3.2 - 5.0 g/dL LAB CHEMISTRY METHOD 07/18/2025 10:42 AM [facility] Total Bilirubin 0.6 0.0 - 1.4 mg/dL LAB CHEMISTRY METHOD 07/18/2025 10:42 AM [facility] Blood Venous blood specimen / Unknown Venipuncture / Unknown 07/18/2025 8:50 AM EDT 07/18/2025 8:50 AM EDT us Suzy MARIA LAB BLOOD ORDERABLES Final Resul t [facility] [address] [place] [address], [place] [phone] * MG Mammo Digital Screening w Philip [...] Signed Date: 11/22/2024 12:18 ET Workstation ID: [id number] Transcribed By: Self Edit Transcribed Date: 11/22/2024 12:13 ET Narrative 11/22/2024 12:18 PM EST EXAM: SCREENING MAMMOGRAPHY, BILATERAL HISTORY: SCREENING. No additional history. COMPARISON: Initial exam TECHNIQUE: Synthesized CC and MLO projections of each breast. Tomosynthesis of each breast in the CC and MLO projections. ADDITIONAL IMAGING: None Computer-aided detection was employed with the [employer] AI 3-D. TISSUE DENSITY: There are scattered [...] None Computer-aided detection was employed with the [employer] AI 3-D. TISSUE DENSITY: There are scattered [...] Signed Date: 11/22/2024 12:18 ET Workstation ID: [id number] Transcribed By: Self Edit Transcribed Date: 11/22/2024 12:13 ET us Self Referral Sppl IMG BI PROCEDURES Final Resul t * Hm Pap Smear (10/14/2022) HM Pap smear No Interpretation , Abstracted Historical Provider HEALTH MAINTENANCE Final Result from Last 3 Months or Most Recently Relevant to Health Maintenance Insurance [facility] Care Teams Director Of Math Relationship Specialty Start Date End Date Soniya Miranda MD [address] [place] [address] PCP - General Internal Medicine 02/07/21
== END 2025-10-03 10:22 | disposition home or self-care (01) ==
LOC: HO.HWS 08:53
PROVIDERS: PCP Internal Medicine; Visit Provider Obstetrics & Gynecology
DX: N93.9 Abnormal uterine and vaginal bleeding, unspecified (principal)
CPT/HCPCS: 99213